=== PATIENT | male | born 1965 | race Caucasian/White ===

== ENCOUNTER 2022-05-08 14:13 | Outpatient (CLI) | payer OTHER, SELFPAY ==
[2022-05-08 18:56] LABS: Basophils Absolute Auto 0.2 K/mm3 (0.0-0.1); Basophils Percent Auto 1.6 % (0.2-1.2); Eosinophils Absolute Auto 0.5 K/mm3 (0-0.3); Eosinophils Percent Auto 4.9 % (0-4.4); Hematocrit 39.7 % (42.0-52.0); Hemoglobin 12.8 g/dL (14.0-18.0); Immature Granulocyte Absolute 0.06 K/mm3 (0.00-0.031); Immature Granulocyte Percent A 0.6 % (0-0.5); Lymphocytes Absolute Auto 2.75 K/mm3 (0.9-3.2); Lymphocytes Percent Auto 25.8 % (18.3-44.2); Mean Corpuscular HGB Conc 32.2 g/dl (32-36); Mean Corpuscular Hemoglobin 28.7 pg (26-34); Mean Platelet Volume 10.2 fl (7.4-10.4); Monocytes Absolute Auto 0.6 K/mm3 (0.1-0.6); Monocytes Percent Auto 5.3 % (2.6-8.5); Neutrophils Absolute Auto 6.6 K/mm3 (1.3-6.7); Neutrophils Percent Auto 61.8 % (45.5-73.1); Platelet Count Result 300 k/mm3 (150-375); Red Blood Count 4.46 M/mm3 (4.6-6.20); Red Cell Distribution Width 14.3 % (11.5-14.5); White Blood Count 10.7 K/mm3 (4.5-10.0)
[2022-05-08 19:31] LABS: Alanine Aminotransferase 91 U/L (6-50); Albumin Level 4.9 g/dL (3.5-5.1); Alkaline Phosphatase 67 U/L (38-126); Anion Gap 17 mmol/L (8-16); Aspartate Amino Transferase 132 U/L (17-59); Bilirubin,Total 0.8 mg/dL (0.2-1.3); Blood Urea Nitrogen 50 mg/dL (9-20); Calcium 9.3 mg/dL (8.4-10.2); Carbon Dioxide 22 mmol/L (22-30); Chloride 105 mmol/L (98-107); Estimated Glomerular Filt Rate 22; Glucose 117 mg/dL (65-110); Magnesium 1.8 mg/dL (1.6-2.3); Potassium 4.6 mmol/L (3.4-5.0); Sodium 144 mmol/L (137-145)
[2022-05-08 19:43] LABS: Appearance Urine Clear (Clear); Bilirubin Urine Negative (Negative); Blood Urine 1+ (Negative); Color Urine Yellow (Yellow); Glucose Urine UA Negative (Negative); Ketones Urine Negative (Negative); Leukocyte Esterase Ur Negative LEU/UL (NEGATIVE); Nitrate Urine Negative (Negative); Protein Urine 2+ mg/dL (Negative); Specific Grav Ur 1.025 (1.001-1.035); Urobilinogen Urine 0.2 mg/dL (<2.0); pH Urine 5.5 (5.0-9.0)
[2022-05-08 19:48] LABS: Hepatitis B Surface Antigen Negative (Negative)
[2022-05-08 19:56] LABS: Mucus Urine Rare /lpf; RBC Urine 0-2 /hpf (0-2); Squamous Epithelial Cell Urine Rare /hpf (Few); WBC Urine 0-3 /hpf (0-3)
[2022-05-08 19:57] LABS: Add Urine Microscopic? YES
[2022-05-08 20:01] LABS: Erythrocyte Sedimentation Rate 28 mm/hr (0-20)
[2022-05-08 20:05] LABS: Hepatitis C Virus Antibody Negative (Negative)
[2022-05-10 23:42] LABS: Albumin 4.6 g/dL (3.8-4.8); Alpha 1 Globulin 0.3 g/dL (0.2-0.3); Alpha 2 Globulin 0.8 g/dL (0.5-0.9); Beta 1 Globulin 0.5 g/dL (0.4-0.6); Gamma Globulin 1.2 g/dL (0.8-1.7); Protein, Total 7.8 g/dL (6.1-8.1)
[2022-05-15 08:55] LABS: Total Protein/Creatinine Ratio 964 mg/g creat (25-148)
== END 2022-05-08 14:14 | disposition home or self-care (01) ==
PROVIDERS: PCP Internal Medicine; Visit Provider Internal Medicine
DX: N18.9 Chronic kidney disease, unspecified (principal); N17.9 Acute kidney failure, unspecified
CPT/HCPCS: 36415; 80053; 81001; 82570; 83735; 84100; 84155; 84156; 84165; 84166; 85025; 85652; 86038; 86039; 86803; 87340

== ENCOUNTER 2022-05-16 09:07 | Outpatient (CLI) | payer OTHER, SELFPAY ==
--- NOTE | ~2022-05-16 | US_ITS ---
EXAMINATION: US abdomen limited DATE: 05/16/2022 09:55 INDICATION: Abnormal levels of other serum enzymes. TECHNIQUE: Multiple grayscale and Doppler ultrasound images of the abdomen were obtained. COMPARISON: None FINDINGS: The visualized portions of the head and body of the pancreas are normal. The liver is sury l without focal lesion. There is normal flow in main portal vein. The gallbladder is normal in size. No gallstones or gallbladder wall thickening. There is no sonographic Pool sign. The common duct is normal and measures 3 mm. IMPRESSION: 1. Normal right upper quadrant ultrasound. Reviewed, dictated and finalized at location A. DIE MAKER
--- NOTE | ~2022-05-16 | US_ITS ---
EXAMINATION: US retroperitoneal duplex ltd, US renal BI DATE: 05/16/2022 09:56 INDICATION: hypertension and acute kidney failure TECHNIQUE: 1. Multiple grayscale and color Doppler images of the kidneys were obtained. 2. Multiple grayscale and pulsed Doppler images of the aorta and renal arteries were obtained. COMPARISON: None. FINDINGS: Kidneys: The right kidney measures 12.1 x 5.4 x 7.4 cm. The left kidney measures 12.2 x 5.8 x 6.9 cm. The kidn eys demonstrate normal echogenicity. There is no hydronephrosis in either kidney. No stones identifi ed. Mild diffuse bladder wall thickening to at least in part to incomplete distention but which may a lso be related to chronic outlet obstruction from the enlarged prostate which measures 4.1 x 4.0 x 3. 2 cm. Renal arteries/vascular: The aorta peak systolic velocity is 83 cm/s. The right renal artery peak systolic velocity is 103 cm/ s in the proximal segment, 67 cm/s in the mid segment, and 43 cm/s in the distal segment. The left re nal artery peak systolic velocity is 74 cm/s in the proximal segment, 63 cm/s in the mid segment, and 64 cm/s in the distal segment. IMPRESSION: 1. Normal kidneys with no hydronephrosis. 2. No Doppler evidence of renal artery stenosis. 3. Mild diffuse bladder wall thickening to at least in part to incomplete distention but could also b e related to chronic outlet obstruction from the mildly enlarged prostate. Reviewed, dictated and finalized at location B. GAGE LOAN COMPUTATION CLERK IMPRESSION: 1. Normal kidneys with no hydronephrosis. 2. No Doppler evidence of renal artery stenosis. 3. Mild diffuse bladder wall thickening to at least in part to incomplete diste ntion but could also be related to chronic outlet obstruction from the mildly e nlarged prostate.
== END 2022-05-16 09:08 | disposition home or self-care (01) ==
LOC: ANHIMG 09:10
PROVIDERS: PCP Internal Medicine; Visit Provider Internal Medicine
DX: N17.9 Acute kidney failure, unspecified (principal); N18.9 Chronic kidney disease, unspecified; R74.8 Abnormal levels of other serum enzymes
CPT/HCPCS: 76705; 76775; 93976

== ENCOUNTER 2022-08-04 09:32 | Outpatient (CLI) | payer OTHER, SELFPAY ==
[2022-08-04 19:44] LABS: Albumin Level 4.2 g/dL (3.5-5.1); Anion Gap 4 mmol/L (8-16); Blood Urea Nitrogen 45 mg/dL (9-20); Calcium 8.7 mg/dL (8.4-10.2); Carbon Dioxide 29 mmol/L (22-30); Chloride 98 mmol/L (98-107); Estimated Glomerular Filt Rate 35; Glucose 291 mg/dL (65-110); Phosphorus 3.8 mg/dL (2.5-4.5); Potassium 4.7 mmol/L (3.4-5.0); Sodium 131 mmol/L (137-145)
[2022-08-04 20:04] LABS: Complement C3 98 mg/dL (88-165); Rheumatoid Factor < 12.0 IU/ML (<12)
[2022-08-04 20:07] LABS: Creatinine Urine 74.8 mg/dL; Total Protein Urine Random 197 mg/dL; Ur Ttl Prot Creatinine Ratio 2.63 mg/mg (0-0.20)
[2022-08-04 20:11] LABS: Sodium Urine Random 73 meq/L
[2022-08-04 20:26] LABS: Eosinophil Urine None Seen % (None Seen); Urine Eos QC 2nd Tech Confirmed
[2022-08-07 11:30] LABS: ANA Cascade Screen Negative (Negative)
[2022-08-07 21:47] LABS: Anti Glomerular Basement Memb <1.0 AI (<1.0)
== END 2022-08-04 09:33 | disposition home or self-care (01) ==
LOC: ANHGOSHLAB 09:34
PROVIDERS: PCP Internal Medicine; Visit Provider Internal Medicine Nephrology
DX: N18.4 Chronic kidney disease, stage 4 (severe) (principal); E11.22 Type 2 diabetes mellitus with diabetic chronic kidney disease; R80.8 Other proteinuria
CPT/HCPCS: 36415; 80069; 82570; 83520; 84156; 84300; 85999; 86038; 86160; 86225; 86430

== ENCOUNTER 2022-12-02 09:59 | Outpatient (CLI) | payer OTHER, SELFPAY ==
[2022-12-02 10:32] LABS: Creatinine Urine 66.1 mg/dL
[2022-12-02 10:38] LABS: Total Protein Urine Random 349 mg/dL; Ur Ttl Prot Creatinine Ratio 5.28 mg/mg (0-0.20)
[2022-12-02 11:04] LABS: Albumin Level 4.3 g/dL (3.5-5.1); Anion Gap 11 mmol/L (8-16); Blood Urea Nitrogen 44 mg/dL (9-20); Carbon Dioxide 25 mmol/L (22-30); Chloride 97 mmol/L (98-107); Estimated Glomerular Filt Rate 35; Glucose 467 mg/dL (65-110); Potassium 4.5 mmol/L (3.4-5.0); Sodium 133 mmol/L (137-145)
[2022-12-02 12:18] LABS: Parathyroid Intact 118.9 pg/mL (7.5-53.5)
[2022-12-02 12:21] LABS: Vitamin D 25 Hydroxy 22.6 ng/mL
== END 2022-12-02 10:00 | disposition home or self-care (01) ==
PROVIDERS: PCP Internal Medicine; Visit Provider Internal Medicine Nephrology
DX: E03.9 Hypothyroidism, unspecified (principal); E11.22 Type 2 diabetes mellitus with diabetic chronic kidney disease; E55.9 Vitamin D deficiency, unspecified; N18.32 Chronic kidney disease, stage 3b; N25.81 Secondary hyperparathyroidism of renal origin
CPT/HCPCS: 36415; 80069; 82306; 82570; 83970; 84156; 84443

== ENCOUNTER 2023-01-01 09:48 | Outpatient (CLI) | payer OTHER, SELFPAY ==
[2023-01-01 19:30] LABS: Basophils Absolute Auto 0.1 K/mm3 (0.0-0.1); Basophils Percent Auto 1.5 % (0.2-1.2); Eosinophils Absolute Auto 0.3 K/mm3 (0-0.3); Eosinophils Percent Auto 3.3 % (0-4.4); Hematocrit 37.4 % (42.0-52.0); Hemoglobin 12.2 g/dL (14.0-18.0); Immature Granulocyte Absolute 0.04 K/mm3 (0.00-0.031); Immature Granulocyte Percent A 0.5 % (0-0.5); Lymphocytes Absolute Auto 1.81 K/mm3 (0.9-3.2); Lymphocytes Percent Auto 22.8 % (18.3-44.2); Mean Corpuscular HGB Conc 32.6 g/dl (32-36); Mean Corpuscular Hemoglobin 27.7 pg (26-34); Mean Platelet Volume 11.1 fl (7.4-10.4); Monocytes Absolute Auto 0.5 K/mm3 (0.1-0.6); Monocytes Percent Auto 6.1 % (2.6-8.5); Neutrophils Absolute Auto 5.2 K/mm3 (1.3-6.7); Neutrophils Percent Auto 65.8 % (45.5-73.1); Platelet Count Result 274 k/mm3 (150-375); Red Cell Distribution Width 12.7 % (11.5-14.5); White Blood Count 7.9 K/mm3 (4.5-10.0)
[2023-01-01 19:49] LABS: Alanine Aminotransferase 27 U/L (6-50); Albumin Level 3.9 g/dL (3.5-5.1); Alkaline Phosphatase 158 U/L (38-126); Aspartate Amino Transferase 28 U/L (17-59); Bilirubin,Total 0.6 mg/dL (0.2-1.3)
[2023-01-01 21:12] LABS: Hemoglobin A1C > 14.0 % (<5.7)
[2023-01-05 17:58] LABS: Testosterone Free 58.8 pg/mL (35.0-155.0); Testosterone Total 249 ng/dL (250-1100)
== END 2023-01-01 09:49 | disposition home or self-care (01) ==
LOC: ANHGOSHLAB 09:50
PROVIDERS: PCP Internal Medicine; Visit Provider Internal Medicine
DX: E11.22 Type 2 diabetes mellitus with diabetic chronic kidney disease (principal); N18.32 Chronic kidney disease, stage 3b; E29.1 Testicular hypofunction; D64.9 Anemia, unspecified
CPT/HCPCS: 36415; 80076; 83036; 84402; 84403; 85025

== ENCOUNTER 2023-03-03 10:00 | Outpatient (CLI) | payer OTHER, SELFPAY ==
[2023-03-03 10:45] LABS: Hematocrit 37.8 % (42.0-52.0); Mean Corpuscular HGB Conc 31.7 g/dl (32-36); Mean Corpuscular Hemoglobin 27.6 pg (26-34); Mean Corpuscular Volume 86.9 fl (80-100); Mean Platelet Volume 10.1 fl (7.4-10.4); Platelet Count Result 285 k/mm3 (150-375); Red Blood Count 4.35 M/mm3 (4.6-6.20); Red Cell Distribution Width 13.3 % (11.5-14.5); White Blood Count 8.9 K/mm3 (4.5-10.0)
[2023-03-03 10:57] LABS: Alanine Aminotransferase 24 U/L (6-50); Albumin Level 4.1 g/dL (3.5-5.1); Alkaline Phosphatase 77 U/L (38-126); Anion Gap 11 mmol/L (8-16); Aspartate Amino Transferase 33 U/L (17-59); Bilirubin,Total 0.5 mg/dL (0.2-1.3); Blood Urea Nitrogen 43 mg/dL (9-20); Calcium 9.2 mg/dL (8.4-10.2); Carbon Dioxide 23 mmol/L (22-30); Chloride 108 mmol/L (98-107); Estimated Glomerular Filt Rate 39; Glucose 128 mg/dL (65-110); Potassium 4.5 mmol/L (3.4-5.0); Sodium 142 mmol/L (137-145)
[2023-03-03 11:28] LABS: Thyroid Stimulating Hormone 0.094 uIU/mL (0.465-4.680)
[2023-03-03 11:51] LABS: Hemoglobin A1C 8.3 % (<5.7)
== END 2023-03-03 10:01 | disposition home or self-care (01) ==
LOC: ANHLAB 10:02
PROVIDERS: PCP Internal Medicine; Visit Provider Internal Medicine
DX: R74.8 Abnormal levels of other serum enzymes (principal); N18.32 Chronic kidney disease, stage 3b; D64.9 Anemia, unspecified; E11.22 Type 2 diabetes mellitus with diabetic chronic kidney disease
CPT/HCPCS: 36415; 80053; 83036; 84443; 85027

== ENCOUNTER 2023-03-31 08:10 | Outpatient (CLI) | payer OTHER, SELFPAY ==
[2023-03-31 08:32] LABS: Creatinine Urine 64.9 mg/dL; Total Protein Urine Random 110 mg/dL; Ur Ttl Prot Creatinine Ratio 1.69 mg/mg (0-0.20)
[2023-03-31 08:34] LABS: Albumin Level 4.2 g/dL (3.5-5.1); Anion Gap 9 mmol/L (8-16); Blood Urea Nitrogen 38 mg/dL (9-20); Calcium 8.9 mg/dL (8.4-10.2); Carbon Dioxide 20 mmol/L (22-30); Chloride 111 mmol/L (98-107); Estimated Glomerular Filt Rate 37; Glucose 112 mg/dL (65-110); Phosphorus 4.4 mg/dL (2.5-4.5); Sodium 140 mmol/L (137-145)
[2023-03-31 09:14] LABS: Vitamin D 25 Hydroxy 66.9 ng/mL
== END 2023-03-31 08:11 | disposition home or self-care (01) ==
LOC: ANHLAB 08:11
PROVIDERS: PCP Internal Medicine; Visit Provider Internal Medicine Nephrology
DX: E11.22 Type 2 diabetes mellitus with diabetic chronic kidney disease (principal); N18.32 Chronic kidney disease, stage 3b; E55.9 Vitamin D deficiency, unspecified
CPT/HCPCS: 36415; 80069; 82306; 82570; 84156

== ENCOUNTER 2023-07-28 09:26 | Outpatient (CLI) | payer OTHER, SELFPAY ==
[2023-07-28 10:00] LABS: Hematocrit 37.6 % (42.0-52.0); Hemoglobin 12.2 g/dL (14.0-18.0); Mean Corpuscular HGB Conc 32.4 g/dl (32-36); Mean Corpuscular Hemoglobin 28.1 pg (26-34); Mean Corpuscular Volume 86.6 fl (80-100); Mean Platelet Volume 10.3 fl (7.4-10.4); Platelet Count Result 254 k/mm3 (150-375); Red Blood Count 4.34 M/mm3 (4.6-6.20); White Blood Count 11.3 K/mm3 (4.5-10.0)
[2023-07-28 10:31] LABS: Iron 48 ug/dL (49-181)
[2023-07-28 10:41] LABS: Percent Iron Saturation 16 % (20-50)
[2023-07-28 11:17] LABS: Anion Gap 10 mmol/L (8-16); Blood Urea Nitrogen 50 mg/dL (9-20); Calcium 9.7 mg/dL (8.4-10.2); Carbon Dioxide 26 mmol/L (22-30); Chloride 104 mmol/L (98-107); Cholesterol 106 mg/dL (0-200); Estimated Glomerular Filt Rate 31; Glucose 125 mg/dL (65-110); HDL Direct 35 mg/dL; Potassium 4.4 mmol/L (3.4-5.0); Sodium 140 mmol/L (137-145); Triglycerides 230 mg/dL (<150)
[2023-07-28 11:22] LABS: Albumin Level 4.6 g/dL (3.5-5.1); Anion Gap 10 mmol/L (8-16); Blood Urea Nitrogen 50 mg/dL (9-20); Calcium 9.7 mg/dL (8.4-10.2); Carbon Dioxide 25 mmol/L (22-30); Chloride 106 mmol/L (98-107); Estimated Glomerular Filt Rate 33; Glucose 125 mg/dL (65-110); Phosphorus 4.1 mg/dL (2.5-4.5); Potassium 4.5 mmol/L (3.4-5.0); Sodium 141 mmol/L (137-145)
[2023-07-28 11:28] LABS: LDL Cholesterol Direct 40 mg/dL
[2023-07-28 11:29] LABS: Creatinine Urine 71.3 mg/dL; Total Protein Urine Random 152 mg/dL; Ur Ttl Prot Creatinine Ratio 2.13 mg/mg (0-0.20)
[2023-07-28 11:29] LABS: Parathyroid Intact 86.9 pg/mL (7.5-53.5)
[2023-07-28 11:36] LABS: Vitamin D 25 Hydroxy 68.6 ng/mL
[2023-07-28 11:47] LABS: Thyroid Stimulating Hormone 0.409 uIU/mL (0.465-4.680)
[2023-07-31 20:42] LABS: Apolipoprotein B 51 mg/dL (<90)
[2023-08-02 07:53] LABS: Testosterone Free 46.9 pg/mL (35.0-155.0); Testosterone Total 190 ng/dL (250-1100)
== END 2023-07-28 09:27 | disposition home or self-care (01) ==
LOC: ANHLAB 09:29
PROVIDERS: PCP Internal Medicine; Referring Provider Internal Medicine; Visit Provider Internal Medicine Nephrology
DX: D64.9 Anemia, unspecified (principal); E03.9 Hypothyroidism, unspecified; E11.22 Type 2 diabetes mellitus with diabetic chronic kidney disease; E29.1 Testicular hypofunction; N18.32 Chronic kidney disease, stage 3b; E55.9 Vitamin D deficiency, unspecified; N25.81 Secondary hyperparathyroidism of renal origin
CPT/HCPCS: 36415; 80048; 80061; 80069; 82172; 82306; 82570; 82728; 83036; 83540; 83550; 83970; 84156; 84402; 84403; 84443; 85027

== ENCOUNTER 2023-10-22 16:21 | Outpatient (CLI) | payer OTHER, SELFPAY ==
[2023-10-22 17:08] LABS: Alanine Aminotransferase 24 U/L (6-50); Albumin Level 4.4 g/dL (3.5-5.1); Alkaline Phosphatase 73 U/L (38-126); Anion Gap 12 mmol/L (4-12); Aspartate Amino Transferase 36 U/L (17-59); Bilirubin,Total 0.7 mg/dL (0.2-1.3); Blood Urea Nitrogen 39 mg/dL (9-20); Calcium 9.3 mg/dL (8.4-10.2); Carbon Dioxide 22 mmol/L (22-30); Chloride 106 mmol/L (98-107); Estimated Glomerular Filt Rate 31; Glucose 138 mg/dL (65-110); Potassium 3.9 mmol/L (3.4-5.0); Sodium 140 mmol/L (137-145)
[2023-10-22 17:09] LABS: Basophils Absolute Auto 0.1 K/mm3 (0.0-0.1); Eosinophils Absolute Auto 0.5 K/mm3 (0-0.3); Eosinophils Percent Auto 4.6 % (0-4.4); Hematocrit 36.3 % (42.0-52.0); Hemoglobin 11.4 g/dL (14.0-18.0); Immature Granulocyte Absolute 0.04 K/mm3 (0.00-0.031); Immature Granulocyte Percent A 0.4 % (0-0.5); Lymphocytes Absolute Auto 2.56 K/mm3 (0.9-3.2); Lymphocytes Percent Auto 22.4 % (18.3-44.2); Mean Corpuscular HGB Conc 31.4 g/dl (32-36); Mean Corpuscular Hemoglobin 27.4 pg (26-34); Mean Corpuscular Volume 87.3 fl (80-100); Mean Platelet Volume 10.1 fl (7.4-10.4); Monocytes Absolute Auto 0.8 K/mm3 (0.1-0.6); Monocytes Percent Auto 7.4 % (2.6-8.5); Neutrophils Absolute Auto 7.3 K/mm3 (1.3-6.7); Neutrophils Percent Auto 64.2 % (45.5-73.1); Platelet Count Result 280 k/mm3 (150-375); Red Blood Count 4.16 M/mm3 (4.6-6.20); Red Cell Distribution Width 12.9 % (11.5-14.5); White Blood Count 11.4 K/mm3 (4.5-10.0)
[2023-10-22 17:36] LABS: Prostate Specific Antigen 0.9 ng/mL (< OR = 4.0)
[2023-10-27 14:52] LABS: Testosterone Free 150.4 pg/mL (35.0-155.0); Testosterone Total 544 ng/dL (250-1100)
== END 2023-10-22 16:22 | disposition home or self-care (01) ==
LOC: ANHLAB 16:22
PROVIDERS: PCP Internal Medicine; Visit Provider Internal Medicine
DX: E11.22 Type 2 diabetes mellitus with diabetic chronic kidney disease (principal); E29.1 Testicular hypofunction; Z79.890 Hormone replacement therapy
CPT/HCPCS: 36415; 80053; 83036; 84153; 84402; 84403; 85025; G0103

== ENCOUNTER 2023-11-19 16:04 | Outpatient (CLI) | payer OTHER, SELFPAY ==
[2023-11-19 17:39] LABS: Anion Gap 10 mmol/L (4-12); Blood Urea Nitrogen 37 mg/dL (9-20); Calcium 9.5 mg/dL (8.4-10.2); Carbon Dioxide 21 mmol/L (22-30); Chloride 109 mmol/L (98-107); Estimated Glomerular Filt Rate 28; Glucose 98 mg/dL (65-110); Potassium 3.8 mmol/L (3.4-5.0); Sodium 140 mmol/L (137-145)
== END 2023-11-19 16:05 | disposition home or self-care (01) ==
LOC: ANHLAB 16:05
PROVIDERS: PCP Internal Medicine; Visit Provider Internal Medicine
DX: N18.32 Chronic kidney disease, stage 3b (principal)
CPT/HCPCS: 36415; 80048

== ENCOUNTER 2023-12-01 11:11 | Outpatient (CLI) | payer OTHER, SELFPAY ==
[2023-12-01 11:33] LABS: Creatinine Urine 101.7 mg/dL; Total Protein Urine Random 191 mg/dL; Ur Ttl Prot Creatinine Ratio 1.88 mg/mg (0-0.20)
[2023-12-01 12:03] LABS: Albumin Level 4.8 g/dL (3.5-5.1); Anion Gap 9 mmol/L (4-12); Blood Urea Nitrogen 44 mg/dL (9-20); Calcium 9.2 mg/dL (8.4-10.2); Carbon Dioxide 20 mmol/L (22-30); Chloride 111 mmol/L (98-107); Estimated Glomerular Filt Rate 28; Glucose 144 mg/dL (65-110); Phosphorus 3.8 mg/dL (2.5-4.5); Potassium 4.4 mmol/L (3.4-5.0); Sodium 140 mmol/L (137-145)
== END 2023-12-01 11:12 | disposition home or self-care (01) ==
LOC: ANHLAB 11:12
PROVIDERS: PCP Internal Medicine; Visit Provider Internal Medicine Nephrology
DX: E11.22 Type 2 diabetes mellitus with diabetic chronic kidney disease (principal); N18.32 Chronic kidney disease, stage 3b
CPT/HCPCS: 36415; 80069; 82570; 84156

== ENCOUNTER 2024-03-17 16:20 | Outpatient (CLI) | payer OTHER, SELFPAY ==
[2024-03-17 16:51] LABS: Basophils Absolute Auto 0.1 K/mm3 (0.0-0.1); Eosinophils Absolute Auto 0.5 K/mm3 (0-0.3); Eosinophils Percent Auto 4.6 % (0-4.4); Hematocrit 30.7 % (42.0-52.0); Immature Granulocyte Absolute 0.03 K/mm3 (0.00-0.031); Immature Granulocyte Percent A 0.3 % (0-0.5); Lymphocytes Absolute Auto 2.11 K/mm3 (0.9-3.2); Lymphocytes Percent Auto 20.7 % (18.3-44.2); Mean Corpuscular HGB Conc 32.6 g/dl (32-36); Mean Corpuscular Hemoglobin 28.8 pg (26-34); Mean Corpuscular Volume 88.5 fl (80-100); Monocytes Absolute Auto 0.8 K/mm3 (0.1-0.6); Monocytes Percent Auto 7.6 % (2.6-8.5); Neutrophils Absolute Auto 6.7 K/mm3 (1.3-6.7); Neutrophils Percent Auto 65.8 % (45.5-73.1); Platelet Count Result 227 k/mm3 (150-375); Red Blood Count 3.47 M/mm3 (4.6-6.20); Red Cell Distribution Width 13.8 % (11.5-14.5); White Blood Count 10.2 K/mm3 (4.5-10.0)
[2024-03-17 17:28] LABS: Alanine Aminotransferase 26 U/L (6-50); Albumin Level 4.1 g/dL (3.5-5.1); Alkaline Phosphatase 63 U/L (38-126); Anion Gap 14 mmol/L (4-12); Aspartate Amino Transferase 36 U/L (17-59); Bilirubin,Total 0.6 mg/dL (0.2-1.3); Blood Urea Nitrogen 42 mg/dL (9-20); Calcium 9.3 mg/dL (8.4-10.2); Carbon Dioxide 21 mmol/L (22-30); Chloride 104 mmol/L (98-107); Estimated Glomerular Filt Rate 23; Glucose 111 mg/dL (65-110); Potassium 4.3 mmol/L (3.4-5.0); Sodium 139 mmol/L (137-145)
[2024-03-17 17:49] LABS: Thyroid Stimulating Hormone 0.106 uIU/mL (0.465-4.680)
[2024-03-17 18:17] LABS: Hemoglobin A1C 5.8 % (<5.7)
== END 2024-03-17 16:21 | disposition home or self-care (01) ==
LOC: ANHLAB 16:21
PROVIDERS: PCP Internal Medicine; Visit Provider Internal Medicine
DX: E11.22 Type 2 diabetes mellitus with diabetic chronic kidney disease (principal); N18.4 Chronic kidney disease, stage 4 (severe); D64.9 Anemia, unspecified; E03.9 Hypothyroidism, unspecified
CPT/HCPCS: 36415; 80053; 83036; 84443; 85025

== ENCOUNTER 2024-04-10 15:18 | Outpatient (CLI) | payer OTHER, SELFPAY ==
[2024-04-10 16:17] LABS: Basophils Absolute Auto 0.1 K/mm3 (0.0-0.1); Basophils Percent Auto 1.1 % (0.2-1.2); Eosinophils Absolute Auto 0.5 K/mm3 (0-0.3); Hematocrit 29.5 % (42.0-52.0); Hemoglobin 9.6 g/dL (14.0-18.0); Immature Granulocyte Absolute 0.03 K/mm3 (0.00-0.031); Immature Granulocyte Percent A 0.3 % (0-0.5); Lymphocytes Absolute Auto 2.41 K/mm3 (0.9-3.2); Lymphocytes Percent Auto 25.8 % (18.3-44.2); Mean Corpuscular HGB Conc 32.5 g/dl (32-36); Mean Corpuscular Hemoglobin 29.5 pg (26-34); Mean Corpuscular Volume 90.8 fl (80-100); Mean Platelet Volume 10.2 fl (7.4-10.4); Monocytes Absolute Auto 0.7 K/mm3 (0.1-0.6); Monocytes Percent Auto 7.3 % (2.6-8.5); Neutrophils Absolute Auto 5.6 K/mm3 (1.3-6.7); Neutrophils Percent Auto 60.5 % (45.5-73.1); Platelet Count Result 258 k/mm3 (150-375); Red Blood Count 3.25 M/mm3 (4.6-6.20); White Blood Count 9.3 K/mm3 (4.5-10.0)
[2024-04-10 17:47] LABS: Albumin Level 4.2 g/dL (3.5-5.1); Anion Gap 11 mmol/L (4-12); Blood Urea Nitrogen 60 mg/dL (9-20); Calcium 9.1 mg/dL (8.4-10.2); Carbon Dioxide 24 mmol/L (22-30); Chloride 103 mmol/L (98-107); Estimated Glomerular Filt Rate 24; Glucose 88 mg/dL (65-110); Phosphorus 5.1 mg/dL (2.5-4.5); Potassium 4.1 mmol/L (3.4-5.0); Sodium 138 mmol/L (137-145)
[2024-04-10 17:58] LABS: Creatinine Urine 112.8 mg/dL; Total Protein Urine Random 69 mg/dL; Ur Ttl Prot Creatinine Ratio 0.61 mg/mg (0-0.20)
[2024-04-10 17:58] LABS: Parathyroid Intact 76.5 pg/mL (14.5-75.2)
[2024-04-10 18:09] LABS: Prostate Specific Antigen 0.9 ng/mL (< OR = 4.0)
[2024-04-10 19:33] LABS: Vitamin D 25 Hydroxy 68.6 ng/mL
[2024-04-16 13:23] LABS: Testosterone Free 111.2 pg/mL (35.0-155.0); Testosterone Total 417 ng/dL (250-1100)
== END 2024-04-10 15:19 | disposition home or self-care (01) ==
LOC: ANHLAB 15:21
PROVIDERS: PCP Internal Medicine; Visit Provider Internal Medicine Nephrology
DX: E11.22 Type 2 diabetes mellitus with diabetic chronic kidney disease (principal); E55.9 Vitamin D deficiency, unspecified; N18.4 Chronic kidney disease, stage 4 (severe); N25.81 Secondary hyperparathyroidism of renal origin; Z12.5 Encounter for screening for malignant neoplasm of prostate; Z79.890 Hormone replacement therapy
CPT/HCPCS: 36415; 80069; 82306; 82570; 83970; 84153; 84156; 84402; 84403; 85025; G0103

== ENCOUNTER 2024-06-10 13:59 | Outpatient (CLI) | payer OTHER, SELFPAY ==
[2024-06-10 14:25] LABS: Basophils Absolute Auto 0.1 K/mm3 (0.0-0.1); Basophils Percent Auto 1.5 % (0.2-1.2); Eosinophils Absolute Auto 0.5 K/mm3 (0-0.3); Eosinophils Percent Auto 6.1 % (0-4.4); Hematocrit 35.3 % (42.0-52.0); Hemoglobin 11.3 g/dL (14.0-18.0); Immature Granulocyte Absolute 0.02 K/mm3 (0.00-0.031); Immature Granulocyte Percent A 0.2 % (0-0.5); Lymphocytes Absolute Auto 2.14 K/mm3 (0.9-3.2); Lymphocytes Percent Auto 26.6 % (18.3-44.2); Mean Corpuscular Volume 90.7 fl (80-100); Mean Platelet Volume 9.5 fl (7.4-10.4); Monocytes Absolute Auto 0.6 K/mm3 (0.1-0.6); Monocytes Percent Auto 7.6 % (2.6-8.5); Neutrophils Absolute Auto 4.7 K/mm3 (1.3-6.7); Platelet Count Result 238 k/mm3 (150-375); Red Blood Count 3.89 M/mm3 (4.6-6.20); Red Cell Distribution Width 12.1 % (11.5-14.5)
[2024-06-10 16:35] LABS: Iron 47 ug/dL (49-181)
[2024-06-10 16:47] LABS: Percent Iron Saturation 15 % (20-50)
[2024-06-10 17:07] LABS: Alanine Aminotransferase 37 U/L (6-50); Albumin Level 4.1 g/dL (3.5-5.1); Alkaline Phosphatase 64 U/L (38-126); Anion Gap 4 mmol/L (4-12); Aspartate Amino Transferase 57 U/L (17-59); Bilirubin,Total 0.5 mg/dL (0.2-1.3); Blood Urea Nitrogen 47 mg/dL (9-20); Calcium 9.2 mg/dL (8.4-10.2); Carbon Dioxide 28 mmol/L (22-30); Chloride 109 mmol/L (98-107); Estimated Glomerular Filt Rate 28; Glucose 94 mg/dL (65-110); Potassium 4.5 mmol/L (3.4-5.0); Sodium 141 mmol/L (137-145)
[2024-06-10 18:33] LABS: Folic Acid 11.6 ng/mL (2.76->20)
[2024-06-11 07:48] LABS: Protein, Total 6.7 g/dL (6.1-8.1)
[2024-06-13 14:38] LABS: Erythropoietin (EPO) 10.8 mIU/mL (2.6-18.5)
[2024-06-14 08:53] LABS: Methylmalonic Acid 486 nmol/L (55-335)
[2024-06-17 12:34] LABS: Soluble Transferrin Receptor 1.15 mg/L (0.76-1.76)
[2024-06-18 20:44] LABS: Albumin 3.9 g/dL (3.8-4.8); Alpha 1 Globulin 0.3 g/dL (0.2-0.3); Alpha 2 Globulin 0.7 g/dL (0.5-0.9); Beta 1 Globulin 0.5 g/dL (0.4-0.6)
== END 2024-06-10 14:00 | disposition home or self-care (01) ==
LOC: ANHLAB 14:02
PROVIDERS: PCP Internal Medicine; Visit Provider Internal Medicine Hematology & Oncology
DX: D64.9 Anemia, unspecified (principal)
CPT/HCPCS: 36415; 80053; 82607; 82668; 82728; 82746; 83540; 83550; 83921; 84155; 84165; 84238; 85025

== ENCOUNTER 2024-08-11 15:25 | Outpatient (CLI) | payer OTHER, SELFPAY ==
--- OUTSIDE RECORDS SUMMARY | 2024-08-11 15:34 | XMS_ITS | Clinical Summary ---
Author Organization [facility] Address [address] [place] [address] Care Team Providers Care Exhibits Manager Name Role Phone Narendra Arellano DO Primary Care Provider Allergies No known active allergies Medications Blood Glucose Monitoring Suppl (ONE TOUCH ULTRA 2) w/Device Kit 02/09/2016 Act abbie Glucose Blood test strip daily. 04/03/2017 Active Active Problems Problem Noted Date Diagnosed Date Morbid obesity ([facility]) 05/07/2019 Other specified hypothyroidism 05/07/2019 Intractable nausea and vomiting 07/08/2017 Assessment & Plan (07/08/2017 2:37 AM COMPUTING CONSULTANT): Acute - S/p 15 episodes of NBNB emesis, possible food poisoning vs viral gastritis vs atypical presentation of NSTEMI with elevated Troponin on admission. Hx and lab findings inconsistent with pancreatitis/SBO Plan: - Received 3L fluid bolus in ED with clinical improvement - Continue NS at 150 ml/hr - NPO w/ sips/meds. ADAT in AM. - Zofran 4 mg IV q6h prn Diabetes mellitus ([facility]) 07/08/2017 Assessment & Plan (07/08/2017 2:39 AM COMPUTING CONSULTANT): Chronic, unknown control - Glucose on presentation 368, received 4 U Novolog in ED Plan: - Ordered HbA1c - Hold home metformin due to elevated lactate - POC glucose AC/HS - Continue Lantus 10 U qHS + MDSSI Hypertension 07/08/2017 Assessment & Plan (07/08/2017 2:40 AM COMPUTING CONSULTANT): Chronic, hypertensive on presentation Plan: - Continue home lisinopril 40 mg daily - Continue to monitor Elevated serum lactate dehydrogenase 07/08/2017 Assessment & Plan (07/08/2017 2:45 AM COMPUTING CONSULTANT): Acute - No convincing signs of infection w/o leukocytosis. No identifiable cutaneous or pulmonary source. No urinary symptoms. EtOH negative. - Possible elevation related to metformin use in setting of dehydration - Trended down 3.4 -> 2.7 with 3L fluid bolus Plan: - Repeat in AM Hypokalemia 07/08/2017 Assessment & Plan (07/08/2017 11:28 AM COMPUTING CONSULTANT): Acute - K 3.1 on admission 2 vomiting Plan: - Received KCl 20 mEq in ED - Repeat BMP Hypomagnesemia 07/08/2017 Assessment & Plan (07/08/2017 2:51 AM COMPUTING CONSULTANT): Acute - Mg 1.6 on admission 2 vomiting Plan: - Received Magnesium sulfate 2g IV in ED - Repeat Magnesium in AM Hyperlipidemia 07/08/2017 Assessment & Plan (07/08/2017 2:53 AM COMPUTING CONSULTANT): Chronic, stable Plan: - Ordered Lipid panel, calculate ASCVD risk History of tobacco abuse 07/08/2017 Diverticulosis 09/28/2016 Tubular adenoma of colon 08/30/2016 Overview (05/01/2019): Overview: f/u 5 yrs DDD (degenerative disc disease), lumbar 04/15/20 14 Resolved Problems Problem Noted Date Diagnosed Date Resolved Date Prostate cancer screening 07/06/2020 Encounter for preventive health examination 11/15/2017 03/12/2020 Class 2 obesity due to exces s calories with body mass index (BMI) of 38.0 to 38.9 in adult 07/08/2017 07/06/2020 Immunizations Name Administration Dates Next Due Influenza Adult (Generic) 04/03/2017 Pneumococcal (Pneumovax 23) 04/15/2014 Tdap (Generic) 04/15/2014 Social History Tobacco Use Types Packs/Day Years Used Date Smoking Tobacco: Former Cigarettes 1 15 1 992 - 2006 Smokeless Tobacco: Never Alcohol Use Standard Drinks/Week Comments Yes 0 (1 standard drink = 0.6 oz pur e alcohol) social PHQ-2 Answer Date Recorded PHQ-2 Score - If the patient scores above 3, please move on to questions 3-9 0 01/06/2022 Sex and Gender Information Value Date Recorded Sex Assigned at Not on file Legal Sex Male 7:45 PM CDT Gender Identity Not on file Sexual Orientation Not on file Last Filed Vital Signs Vital Sign Reading Time Taken Comments Blood Pressure 142/80 01/06/2022 8:15 AM CDT Pulse 62 01/06/2022 8:15 AM CDT Temperature 37.6 C (99.7 F) 10/25/2018 9:12 AM CDT Respiratory Rate 18 10/25/2018 12:50 PM CDT Oxygen Saturation 95% 10/25/2018 1:30 PM CDT Inhaled Oxygen Concentration - - Weight 112.9 kg (249 lb) 01/06/2022 8:15 AM CDT Height 170.2 cm (5' 7 ) 01/06/2022 8:15 AM CDT Body Mass Index 39 01/06/2022 8:15 AM CDT Plan of Treatment Health Maintenance Due Date Last Done Comments Kidney Health Evaluation 1966 Diabetes: Retinopathy Eye Exam 1984 Hepatitis C 1984 Hepatitis B Vaccines (1 of 3 - 19+ 3-dose series) 1985 Pneumococcal Vaccine: Pediatrics (0 to 5 Years) and At-Risk Patients (6 to 64 Years) (2 of 2 - PCV) 04/15/2015 04/15/2014 Zoster Vaccines (1 of 2) 2016 Hemoglobin A1C 07/09/2022 01/06/2022, 10/2020, 05/10/2019, Additional history exists Annual Physical 01/06/2023 01/06/2022, 10/2020, 05/07/2019 Lipid Panel 01/06/2023 01/06/2022, 01/2022, 07/06/2020, Additional history exists COVID-19 Vaccine ( season) 2024 10/15/2020, 09/23/2020 Influenza Adult (#1) 2024 04/03/2017, 04/20/20 16 DTaP, Tdap and Td Vaccines (2 - Td or Tdap) 04/15/2024 04/15/2014 Colorectal Cancer Screening Colonoscopy (10 Years) 07/02/2026 07/02/2016 Meningococcal B Vaccine Aged Out No l onger eligible based on patient's age to complete this topic Meningococcal Vaccine Aged Out No jack dae eligible based on patient's age to complete this topic RSV Immunizations Under 20 Months Aged Out No longer eligible based on patient's age to complete this topic Procedures Procedure Name Priority Date/Time Associated Diagnosis Comments LIPID PANEL Routine 01/06/2022 8:36 AM CDT 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) COLONOSCOPY Routine 07/02/2016 12:00 AM COMPUTING CONSULTANT from Last 3 Months or Most Recently Relevant to Health Maintenance Results * (ABNORMAL) LIPID PANEL (01/06/2022 8:36 AM CDT) CHOLESTEROL 178 0 - 199 MG/DL [facility] TRIGLYCERIDES 336(H) 0.00 - 150.00 MG/DL [facility] Comment: NCEP REFERENCE VALUES FOR TRIGLYCERIDES: NORMAL: <150 MG/DL BORDERLINE HIGH: 150 - 199 MG/DL HIGH: 200 - 499 MG/DL VERY HIGH: >/= 500 MG/DL HDL 34(L) >40 MG/DL [facility] LDL (CALCULATED) 77 0 - 99 MG/DL [facility] Comment: CUTOFF VALUES RECOMMENDED BY THE NATIONAL CHOLESTEROL EDUCATION PROGRAM: DESIRABLE: CHOLESTEROL <200 MG/DL LDL <100 MG/DL BORDERLINE: CHOLESTEROL 200-239 MG/DL LDL 101-159 MG/DL HIGHER RISK: CHOLESTEROL >240 MG/DL LDL >160 MG/DL, HDL <40 MG/DL NON HDL CHOLESTEROL 144 NO REFERENCE RANGE MG/DL [facility] Comment: A REASONABLE GOAL FOR NON-HDL CHOLESTEROL IS ONE THAT IS 30 MG/DL HIGHER THAN THE LDL CHOLESTEROL GOAL. CHOL/HDL RATIO 5.2(H) 0.0 - 5.0 . [facility] Comment:IS PATIENT FASTING?- >YES 01/06/2022 8:36 AM CDT 01/07/2022 4:28 AM CDT [employer] DO LABORATORY Final Resul t [facility] [address] [place] [address], * (ABNORMAL) HEMOGLOBIN, GLYCOSYLATED (01/06/2022 8:33 AM CDT) HGB A1C 6.8(A) 4.2 - 6.5 % [facility] 01/06/2022 8:33 AM CDT [employer] DO LABORATORY Final Resul t Performing Organization Address [facility] Co de Phone Number [facility] [address] [place], [place] [address], * Colonoscopy (07/02/2016 12:00 AM COMPUTING CONSULTANT) 07/02/2016 07/02/2016 Narrative TOUCHWORKS TO EPIC CONVERSION - 07/02/2016 12:00 AM COMPUTING CONSULTANT Documented hx of procedure Procedure Note Mal Mari MD - 09/19/2018 Documented hx of procedure Generic Conversion Md MARI GI PROCEDURE ORDERABLES Final Result Performing Organization Address [facility] Co de Phone Number TOUCHWORKS TO EPIC CONVERSION from Last 3 Months or Most Recently Relevant to Health Maintenance Insurance [employer] Advance Directives * Full Code (Latest Code Status on File) Date Activated Date Inactivated Comments 07/08/2017 2:26 AM 07/08/2017 7:28 PM Care Teams Exhibits Manager Relationship Specialty Start Date End Date Narendra Arellano DO PCP - General FAMILY PRACTICE 10/25/18
--- OUTSIDE RECORDS SUMMARY | 2024-08-11 15:34 | XMS_ITS | Clinical Summary ---
Author Organization [facility] [employer] Address [address] [place] [address] Care Team Providers Care Sports Administrator Name Role Phone Elan Rothman PA-C Primary Care Provider [phone] Source Comments [facility],non-owned Affiliates and Associated Physician Practices is amultiple site organization consisting of ambulatory clinics and hospital sitesin [place], [place], [place] and [place]. This disclosure is being madepursuant to the Care Everywhere program and may not contain all information available regarding this patient. Last updated 18.[facility] Medications * Be aware that medications may not be up to date on this document. Alwaysverify current medications with the patient. Medication Sig Dispensed Refills Start Date End Date Status Acetaminophen-Aspirin Buffered (EXCEDRIN BACK & BODY PO) Take by mouth. 11/01/2014 Active Social History Tobacco Use Types Packs/Day Years Used Date Smoking Tobacco: Never Smokeless Tobacco: Never Alcohol Use Standard Drinks/Week Comments Yes 0 (1 standard drink = 0.6 oz pur e alcohol) Sex and Gender Information Value Date Recorded Sex Assigned at Not on file Gender Identity Not on file Sexual Orientation Not on file Last Filed Vital Signs Vital Sign Reading Time Taken Comments Blood Pressure 163/88 11/01/2014 4:35 PM CDT Pulse 54 11/01/2014 4:35 PM CDT Temperature 36.7 C (98.1 F) 11/01/2014 4:35 PM CDT Respiratory Rate 16 11/01/2014 4:35 PM CDT Oxygen Saturation 98% 11/01/2014 4:35 PM CDT Inhaled Oxygen Concentration - - Weight 117.9 kg (260 lb) 11/01/2014 4:35 PM CDT Height 172.7 cm (5' 7.99 ) 11/01/2014 4:35 PM CD T Body Mass Index 39.54 11/01/2014 4:35 PM CDT Plan of Treatment Health Maintenance Due Date Last Done Comments COLOGUARD (AGES 45-75) - COL ON CA SCREENING 1966 COLON MONITORING 1966 COLONOSCOPY - COLON CA SCREENING 1966 CT COLONOGRAPHY - COLON CA SCREENING 1966 Colorectal Cancer Screening 1966 FIT - COLON CA SCREENING 1966 FLEX SIG - COLON CA SCREENING 1966 LIPID TESTING 1966 HIV SCREENING 1981 HEPATITIS C SCREENING 07/09/1984 DTAP/TDAP/TD VACCINES (1 - Tdap) 1985 HEPATITIS B VACCINE (1 of 3 - 19+ 3-dose series) 1985 PNEUMOCOCCAL VACCINE 50+ (1 of 1 - PCV) 2016 ZOSTER VACCINE (1 of 2) 2016 COVID-19 VACCINE (1 - 2023-2 5 season) 2024 INFLUENZA VACCINE (#1) 2024 DEPRESSION SCREENING 07/02/2024 HIB VACCINE Aged Out No longer eligi ble based on patient's age to complete this topic HPV VACCINE Aged Out No longer eligi ble based on patient's age to complete this topic MENINGOCOCCAL (Group B) VACCINE Aged Out No longer eligible based on patient's age to complete this topic MENINGOCOCCAL VACCINE Aged Out No jack dae eligible based on patient's age to complete this topic PNEUMOCOCCAL VACCINE Aged Out No long er eligible based on patient's age to complete this topic Care Teams Sports Administrator Relationship Specialty Start Date End Date Elan Rothman PA-C [address] [place] [address] PCP - General 11/01/14
--- OUTSIDE RECORDS SUMMARY | 2024-08-11 15:34 | XMS_ITS | Patient Health Summary ---
Author Organization [facility] Address [address] [place] [address] Care Team Providers Care Loader Engineer Name Role Phone Elan Rothman PA-C Primary Care Provider [phone] Note from [facility],non-owned Affiliates and Associated Physician Practices is amultiple site organization consisting of ambulatory clinics and hospital sitesin [place], [place], [place] and [place]. This disclosure is being madepursuant to the Care Everywhere program and may not contain all information available regarding this patient. Last updated 18.[facility] Medications * Be aware that medications may not be up to date on this document. Alwaysverify current medications with the patient. * Acetaminophen-Aspirin Buffered (EXCEDRIN BACK & BODY PO)(Started 11/01/2014) Take by mouth. Social History Tobacco Use Types Packs/Day Years [...] Mass Index 39.54 11/01/2014 4:35 PM CDT Procedures * XR SHOULDER RIGHT 2VW OR MORE(Performed 11/01/2014) Results * XR SHOULDER RIGHT 2VW OR MORE (11/01/2014 5:14 PM CDT) Anatomical Region Laterality Modality Upper Extremity Other Impressions 11/01/2014 5:33 PM CDT No acute osseous abnormality. Degenerative changes including prominent osteophyte at the undersurface of the acromion. Reading Radiologist - Mana Byers Releasing Radiologist - Mana Byers Dictation Date Time - 11/01/2014 17:32 Coordinate Measuring Equipment Operator - NA Narrative 11/01/2014 5:33 PM CDT XR SHOULDER RIGHT 2VW OR MORE, 11/01/2014 4:46 PM, [facility] INDICATION: 959.2: Injury, other and unspecified, shoulder and upper arm ADDITIONAL CLINICAL INFORMATION: Ordering Provider Reason For Exam: Technologist Note: Rt shoulder injury Additional: None COMPARISON: None available at the time of dictation. TECHNIQUE: Three views of the right shoulder are reviewed. FINDINGS: No acute fracture or dislocation is seen. There is a very prominent osteophyte arising from the undersurface of the acromion near the AC joint, likely to cause subacromial impingement. Mild superior subluxation of the humeral head is seen, sometimes associated with rotator cuff pathology. The glenohumeral joint and AC joint spaces are narrowed with marginal osteophytes. Small degenerative cysts are seen in the humeral head. Procedure Note Mana Byers MD - 05/03/2018 XR SHOULDER RIGHT 2VW OR MORE, 11/01/2014 4:46 PM, [facility] INDICATION: 959.2: Injury, other and unspecified, shoulder and upper arm ADDITIONAL CLINICAL INFORMATION: Ordering Provider Reason For Exam: Technologist Note: Rt shoulder injury Additional: None COMPARISON: None available at the time of dictation. TECHNIQUE: Three views of the right shoulder are reviewed. FINDINGS: No acute fracture or dislocation is seen. There is a very prominent osteophyte arising from the undersurface ofthe acromion near the AC joint, likely to cause subacromial impingement. Mild superior subluxation of the humeral head is seen, sometimesassociated with rotator cuff pathology. The glenohumeral joint and AC joint spaces are narrowed with marginal osteophytes. Small degenerative cysts are seen in the humeral head. IMPRESSION No acute osseous abnormality. Degenerative changes including prominent osteophyte at the undersurface of the acromion. Reading Radiologist - Mana Byers Releasing Radiologist - Mana Byers Dictation Date Time - 11/01/2014 17:32 Coordinate Measuring Equipment Operator - NA Abimael Handley MD DIAGNOSTIC IMAGING [facility] Care Teams Loader Engineer Relationship Specialty Start Date End Date Elan Rothman PA-C [address] [place] [address] PCP - General 11/01/14
--- OUTSIDE RECORDS SUMMARY | 2024-08-11 15:34 | XMS_ITS | Clinical Summary ---
Author Organization [facility] Address [address] [place] [id number] Care Team Providers Care Psychology Professor Name Role Phone Unavailable Primary Care Provider Unavailabl e Social History Tobacco Use Types Packs/Day Years Used Date Smoking Tobacco: Never Assessed Sex and Gender Information Value Date Recorded Sex Assigned at Not on file Legal Sex Male 4:05 PM CDT Gender Identity Not on file Sexual Orientation Not on file Plan of Treatment Health Maintenance Due Date Last Done Comments Hepatitis C Virus (HCV) Screening 1966 TdaP Immunization 1966 Hepatitis B Immunization (1 of 3 - 19+ 3-dose series) 1985 Colonoscopy 2011 Colorectal Cancer Screening 2011 Cologuard 2016 Immunochemical Fecal Occult Blood 2016 Pneumococcal Immunization (5 0+ years) (1 of 1 - PCV) 2016 Zoster Immunization (1 of 2) 2016 PSA Discussion 2021 Influenza Immunization (#1) 2024 SARS-COV-2 Immunization ( - 2023- season) 2024 10/15/2020, 09/23/2020 Respiratory Syncytial Virus (RSV) Immunization (Adult) (1 - 1-dose 75+ series) 2041 Meningococcal Immunization (ACWY) Aged Out No longer eligible b ased on patient's age to complete this topic Pneumococcal Immunization Combined Aged Out No longer eligible b ased on patient's age to complete this topic Rotavirus Immunization Aged Out No lo nger eligible based on patient's age to complete this topic
--- OUTSIDE RECORDS SUMMARY | 2024-08-11 15:34 | XMS_ITS | Referral Summary ---
Author Organization [facility] Address [address] [place] [address] Care Team Providers Care Junior Graphic Designer Name Role Phone Elan Rothman PA-C Primary Care Provider [phone] Source Comments [facility],non-owned Affiliates and Associated Physician Practices is amultiple site organization consisting of ambulatory clinics and hospital sitesin [place], [place], [place] and [place]. This disclosure is being madepursuant to the Care Everywhere program and may not contain all information available regarding this patient. Last updated 18.[facility] Medications * Be aware that medications may [...] 11/01/2014 4:35 PM CDT Plan of Treatment Not on file Care Teams Junior Graphic Designer Relationship Specialty Start Date End Date Elan Rothman PA-C [address] [place], [place] [id number] PCP - General 11/01/14
--- OUTSIDE RECORDS SUMMARY | 2024-08-11 15:34 | XMS_ITS | Clinical Summary ---
Author Organization [facility] Address [address] [place] [phone] Phone Care Team Providers Care Research Executive Name Role Phone Ambrocio Guerra DO Primary Care Provider Allergies No known active allergies Medications Medication Sig Dispensed Refills Start Date End Date Status metFORMIN (GLUCOPHAGE) 500 MG tablet Take 1,000 mg by mouth in the morning and 1,000 mg before bedtime. 04/24/2022 Active levothyroxine (SYNTHROID) 150 MCG tablet 06/05/2022 Active glipiZIDE (GLUCOTROL) 10 MG tablet Take 10 mg by mouth in the morning and 10 mg before bedtime. 04/24/2022 Active Active Problems Problem Noted Date Diagnosed Date Morbid obesity 05/07/2019 Hyperlipidemia 07/08/2017 Overview (06/02/2022): Last Assessment & Plan: Chronic, stable Plan: - Ordered Lipid panel, calculate ASCVD risk Hypokalemia 07/08/2017 Overview (06/02/2022): Last Assessment & Plan: Acute - K 3.1 on admission 2/2 vomiting Plan: - Received KCl 20 mEq in ED - Repeat BMP Hypomagnesemia 07/08/2017 Overview (06/02/2022): Last Assessment & Plan: Acute - Mg 1.6 on admission 2/2 vomiting Plan: - Received Magnesium sulfate 2g IV in ED - Repeat Magnesium in AM Intractable nausea and vomiting 07/08/2017 Overview (06/02/2022): Last Assessment & Plan: Acute - S/p 15 episodes of NBNB emesis, possible food poisoning vs viral gastritis vs atypical presentation of NSTEMI with elevated Troponin on admission. Hx and lab findings inconsistent with pancreatitis/SBO Plan: - Received 3L fluid bolus in ED with clinical improvement - Continue NS at 150 ml/hr - NPO w/ sips/meds. ADAT in AM. - Zofran 4 mg IV q6h prn Serum lactate dehydrogenase level elevated 07/08 Overview (06/02/2022): Last Assessment & Plan: Acute - No convincing signs of infection w/o leukocytosis. No identifiable cutaneous or pulmonary source. No urinary symptoms. EtOH negative. - Possible elevation related to metformin use in setting of dehydration - Trended down 3.4 -> 2.7 with 3L fluid bolus Plan: - Repeat in AM Tobacco use and exposure - finding 07/08/2017 Type 2 diabetes mellitus 07/08/2017 Overview (06/02/2022): Last Assessment & Plan: Chronic, unknown control - Glucose on presentation 368, received 4 U Novolog in ED Plan: - Ordered HbA1c - Hold home metformin due to elevated lactate - POC glucose AC/HS - Continue Lantus 10 U qHS + MDSSI Mixed hyperlipidemia 03/16/2017 Essential hypertension 03/16/2017 Acquired hypothyroidism 03/16/2017 Diverticular disease 09/28/2016 Tubular adenoma of colon 08/30/2016 Overview (06/02/2022): Overview: f/u 5 yrs f/u 5 yrs Body mass index 40+ - severely obese 04/15/2014 Degeneration of lumbar intervertebral disc 04/15 Immunizations Name Administration Dates Next Due Influenza TIV (IM) 03/24/2014 Influenza, Injectable, Quadrivalent, Preservativ e Free 04/03/2017,04/20/2016 Influenza, Unspecified 04/03/2017 Pneumococcal Polysaccharide 04/15/2014 Tdap 04/15/2014 Social History Tobacco Use Types Packs/Day Years Used Date Smoking Tobacco: Former Cigarettes 1 15 1 2 - 2006 Smokeless Tobacco: Never Tobacco Cessation:Counseling Given: Not Answered Alcohol Use Standard Drinks/Week Comments Yes 0 (1 standard drink = 0.6 oz pur e alcohol) Sex and Gender Information Value Date Recorded Sex Assigned at Not on file Gender Identity Not on file Sexual Orientation Not on file Last Filed Vital Signs Vital Sign Reading Time Taken Comments Blood Pressure 138/84 06/07/2022 8:42 AM SPRINKLER FITTER APPRENTICE Pulse - - Temperature 36.1 C (97 F) 06/07/2022 8:42 AM SPRINKLER FITTER APPRENTICE Respiratory Rate 18 06/07/2022 8:42 AM SPRINKLER FITTER APPRENTICE Oxygen Saturation - - Inhaled Oxygen Concentration - - Weight 113 kg (250 lb) 06/07/2022 8:42 AM SPRINKLER FITTER APPRENTICE Height 172.7 cm (5' 8 ) 06/07/2022 8:42 AM SPRINKLER FITTER APPRENTICE Body Mass Index 38.01 06/07/2022 8:42 AM SPRINKLER FITTER APPRENTICE Plan of Treatment Health Maintenance Due Date Last Done Comments Pneumococcal PPSV23 Highest Risk Adult (2 of 3 - PCV13) 04/15/2015 04/15/2014 Influenza Vaccine (#1) 2024 7, 04/03/2017, 04/20/2016, Additional history exists Care Teams Research Executive Relationship Specialty Start Date End Date Ambrocio Guerra DO [address] [place] [address] PCP - General Internal Medicine 05/22/22
--- OUTSIDE RECORDS SUMMARY | 2024-08-11 15:34 | XMS_ITS | Clinical Summary ---
Author Organization [facility] King durham Quang Address [address] [place] [address] Care Team Providers Care Chocolate Packer Name Role Phone Ambrocio Guerra Primary Care Provider Allergies No known active allergies Medications Farxiga 10 mg Tablet 10 mg. 4 Active levothyroxine 150 mcg tablet take 1 tablet by mouth in the morning Active losartan (COZAAR) 25 mg tablet Take 1 Tablet by mouth daily. 4 Active metFORMIN (GLUCOPHAGE) 500 mg tablet Take 1,000 mg by mouth 2 times daily with meals. Active rosuvastatin (CRESTOR) 10 mg tablet Take 1 Tablet by mouth daily. 4 Active Ozempic 2 mg/dose (8 mg/3 mL) Pen Injector Inject 2 mg by subcutaneous injection every 7 days. 4 Active testosterone cypionate (DEPO-TESTOSTE ELVER) 200 mg/mL Oil INJECT 140MG (0.7ML) INTRAMUSCULARY WEEKLY 4 Active Active Problems No known active problems Encounters Date Type Department Care Team Description 07/29/2024 External Device Data STL ABSTRACTION Provider, Abstract 07/16/2024 External Device Data STL ABSTRACTION Provider, Abstract 07/15/2024 2:30 PM WAREHOUSE FREIGHT HANDLER Office Visit [facility] On[facility] and Hematology - [place] [address] [place] [address] Toby Martin MD Chronic anemia (Primary Dx) 07/08/2024 External Device Data STL ABSTRACTION Provider, Abstract 06/23/2024 Orders Only [facility] - [place] [address] [place] [address] Toby Martin MD 06/17/2024 External Device Data STL ABSTRACTION Provider, Abstract 06/16/2024 Orders Only [facility]ology - [place] [address] [place] [phone] Toby Martin MD 06/12/2024 Orders Only [facility]ology - [place] [address] [place] [address] Toby Martin MD 06/10/2024 1:30 PM WAREHOUSE FREIGHT HANDLER Office Visit [facility]ematology - [place] [address] [place] [phone] Toby Martin MD Chronic anemia (Primary Dx) from Last 3 Months Family History * Patient is adopted Medical History Relation Name Comments No Known Problems Father No Known Problems Mother Cancer Sister 2 Relation Name Status Comments Father Alive Mother Sister 1 Alive Sister 2 Alive Social History Tobacco Use Types Packs/Day Years Used Date Smoking Tobacco: Former Cigarettes 1 30 Q uit: 06/10/2014 Tobacco Cessation:Counseling Given: Not Answered Sex and Gender Information Value Date Recorded Sex Assigned at Not on file Legal Sex Male 11:15 PM CDT Gender Identity Not on file Sexual Orientation Not on file Last Filed Vital Signs Vital Sign Reading Time Taken Comments Blood Pressure 159/82 07/15/2024 2:21 PM WAREHOUSE FREIGHT HANDLER Pulse 65 07/15/2024 2:21 PM WAREHOUSE FREIGHT HANDLER Temperature 36.6 C (97.8 F) 07/15/2024 2:21 PM WAREHOUSE FREIGHT HANDLER Respiratory Rate 16 07/15/2024 2:21 PM WAREHOUSE FREIGHT HANDLER Oxygen Saturation 95% 07/15/2024 2:21 PM WAREHOUSE FREIGHT HANDLER Inhaled Oxygen Concentration - - Weight 93 kg (205 lb) 07/15/2024 2:21 PM WAREHOUSE FREIGHT HANDLER Height 172.7 cm (5' 8 ) 06/10/2024 1:34 PM WAREHOUSE FREIGHT HANDLER Body Mass Index 31.17 06/10/2024 1:34 PM WAREHOUSE FREIGHT HANDLER Plan of Treatment Upcoming Encounters Date Type Department Care Team (Late st Contact Info) Description 11/12/2024 2:45 PM CDT Office Visit [facility] H[facility]ology - [place] [address] [facility] [address] [place] [address] Toby Martin MD [address] [facility] [address] [place] [address] Health Maintenance Due Date Last Done Comments DIABETES ANNUAL FOOT EXAM 1984 DIABETES ANNUAL RETINAL EXAM 1984 DIABETES MICROALBUMIN ANNUAL SCREEN 1984 LDL CHOLESTEROL ANNUAL 1984 HEPATITIS B VACCINES (1 of 3 - 19+ 3-dose series) 1985 FIT-DNA Q 3 years 2011 FIT/FOBT Q 1 year 2011 Flex Sig/CT Colonography Q 5 years 2011 ZOSTER VACCINE (1 of 2) 2016 DIABETES HBA1C Q 6 MONTHS 07/09/2022 01/06/2022 INFLUENZA VACCINE (#1) 2024 7, 04/20/2016, 03/24/2014 DTAP/TDAP/TD VACCINES (2 - T d or Tdap) 04/15/2024 04/15/2014 COLORECTAL SCREENING 07/02/2026 07/02/2016 Colorectal Cancer Screening 07/02/2026 Procedures Procedure Name Priority Date/Time Associated Diagnosis Comments PROTEIN ELECTROPHORESIS, CSF Routine 06/23/2024 3:13 PM WAREHOUSE FREIGHT HANDLER COMPREHENSIVE METABOLIC PANEL Routine 06/10/2024 3:46 PM WAREHOUSE FREIGHT HANDLER CBC WITH DIFFERENTIAL Routine 06/10/2024 3:35 PM WAREHOUSE FREIGHT HANDLER TRANSFERRIN RECEPTOR TFR SOLUBLE Routine 06/10/2024 3:28 PM WAREHOUSE FREIGHT HANDLER TRANSFERRIN RECEPTOR TFR SOLUBLE Routine 06/10/2024 3:25 PM WAREHOUSE FREIGHT HANDLER TRANSFERRIN RECEPTOR TFR SOLUBLE Routine 06/10/2024 3:23 PM WAREHOUSE FREIGHT HANDLER TRANSFERRIN RECEPTOR TFR SOLUBLE Routine 06/10/2024 3:21 PM WAREHOUSE FREIGHT HANDLER TRANSFERRIN RECEPTOR TFR SOLUBLE Routine 06/10/2024 3:21 PM WAREHOUSE FREIGHT HANDLER TRANSFERRIN RECEPTOR TFR SOLUBLE Routine 06/10/2024 3:20 PM WAREHOUSE FREIGHT HANDLER TRANSFERRIN RECEPTOR TFR SOLUBLE Routine 06/10/2024 3:19 PM WAREHOUSE FREIGHT HANDLER IRON LEVEL Routine 06/10/2024 3:01 PM WAREHOUSE FREIGHT HANDLER TRANSFERRIN RECEPTOR TFR SOLUBLE Routine 06/10/2024 2:41 PM WAREHOUSE FREIGHT HANDLER TRANSFERRIN RECEPTOR TFR SOLUBLE Routine 06/10/2024 1:10 PM WAREHOUSE FREIGHT HANDLER from Last 3 Months Results * PROTEIN ELECTROPHORESIS, CSF (06/23/2024 3:13 PM WAREHOUSE FREIGHT HANDLER) Cerebrospinal fluid CEREBROSPINAL FLUID / Unknown us Toby Martin MD BODY FLUIDS AND STOOLS Final Re sult * COMPREHENSIVE METABOLIC PANEL (06/10/2024 3:46 PM WAREHOUSE FREIGHT HANDLER) Blood Result Ilda Martin MD CHEMISTRY ORDERABLES Final Resu lt * CBC WITH DIFFERENTIAL (06/10/2024 3:35 PM WAREHOUSE FREIGHT HANDLER) Blood Result Ilda Martin MD HEMATOLOGY ORDERABLES Final Res ult * TRANSFERRIN RECEPTOR TFR SOLUBLE (06/10/2024 3:28 PM WAREHOUSE FREIGHT HANDLER) Only the most recent of9 resultswithin the time period is included. Blood Result Ilda Martin MD CHEMISTRY ORDERABLES Final Resu lt * IRON LEVEL (06/10/2024 3:01 PM WAREHOUSE FREIGHT HANDLER) Blood Result Ilda Martin MD CHEMISTRY ORDERABLES Final Resu lt from Last 3 Months Insurance [facility] OPEN ACCESS HMO Care Teams Chocolate Packer Relationship Specialty Start Date End Date Ambrocio Guerra DO [address] [address] PCP - General Internal Medicine 06/10/24
[2024-08-11 16:32] LABS: Basophils Absolute Auto 0.1 K/mm3 (0.0-0.1); Basophils Percent Auto 1.1 % (0.2-1.2); Eosinophils Absolute Auto 0.5 K/mm3 (0-0.3); Eosinophils Percent Auto 4.3 % (0-4.4); Hematocrit 35.6 % (42.0-52.0); Hemoglobin 11.3 g/dL (14.0-18.0); Immature Granulocyte Absolute 0.02 K/mm3 (0.00-0.031); Immature Granulocyte Percent A 0.2 % (0-0.5); Lymphocytes Absolute Auto 2.45 K/mm3 (0.9-3.2); Lymphocytes Percent Auto 22.5 % (18.3-44.2); Mean Corpuscular HGB Conc 31.7 g/dl (32-36); Mean Corpuscular Volume 88.3 fl (80-100); Mean Platelet Volume 10.3 fl (7.4-10.4); Monocytes Absolute Auto 0.8 K/mm3 (0.1-0.6); Monocytes Percent Auto 6.9 % (2.6-8.5); Neutrophils Absolute Auto 7.1 K/mm3 (1.3-6.7); Platelet Count Result 250 k/mm3 (150-375); Red Blood Count 4.03 M/mm3 (4.6-6.20); Red Cell Distribution Width 12.7 % (11.5-14.5); White Blood Count 10.9 K/mm3 (4.5-10.0)
[2024-08-11 16:44] LABS: Albumin Level 4.3 g/dL (3.5-5.1); Anion Gap 11 mmol/L (4-12); Blood Urea Nitrogen 52 mg/dL (9-20); Calcium 9.2 mg/dL (8.4-10.2); Carbon Dioxide 26 mmol/L (22-30); Chloride 102 mmol/L (98-107); Estimated Glomerular Filt Rate 25; Glucose 81 mg/dL (65-110); Phosphorus 4.3 mg/dL (2.5-4.5); Potassium 4.9 mmol/L (3.4-5.0); Sodium 139 mmol/L (137-145)
[2024-08-11 17:00] LABS: Creatinine Urine 90.3 mg/dL; Total Protein Urine Random 157 mg/dL; Ur Ttl Prot Creatinine Ratio 1.74 mg/mg (0-0.20)
== END 2024-08-11 15:26 | disposition home or self-care (01) ==
LOC: ANHLAB 15:26
PROVIDERS: PCP Internal Medicine; Visit Provider Internal Medicine Nephrology
DX: E03.9 Hypothyroidism, unspecified (principal); D64.9 Anemia, unspecified; E11.22 Type 2 diabetes mellitus with diabetic chronic kidney disease; N18.4 Chronic kidney disease, stage 4 (severe)
CPT/HCPCS: 36415; 80069; 82570; 84156; 84443; 85025

== ENCOUNTER 2024-09-02 15:22 | Outpatient (CLI) | payer OTHER, SELFPAY ==
[2024-09-02 16:13] LABS: Creatinine Urine 78.4 mg/dL
[2024-09-02 16:43] LABS: MALB Creatinine Ratio 613.4 mg/g (0-30); Microalbumin Urine Random 480.9 mg/L (0-16.7)
[2024-09-02 17:26] LABS: Prostate Specific Antigen 0.9 ng/mL (< OR = 4.0)
[2024-09-02 17:29] LABS: Hemoglobin A1C 5.7 % (<5.7)
== END 2024-09-02 15:23 | disposition home or self-care (01) ==
LOC: ANHLAB 15:25
PROVIDERS: PCP Internal Medicine; Visit Provider Internal Medicine
DX: E11.22 Type 2 diabetes mellitus with diabetic chronic kidney disease (principal); N18.32 Chronic kidney disease, stage 3b; Z79.890 Hormone replacement therapy
CPT/HCPCS: 36415; 82043; 83036; 84153; 84402; 84403

== ENCOUNTER 2024-12-09 16:11 | Outpatient (CLI) | payer OTHER, SELFPAY ==
[2024-12-09 16:59] LABS: Creatinine Urine 92.4 mg/dL
--- OUTSIDE RECORDS SUMMARY | 2024-12-09 17:14 | XMS_ITS | Clinical Summary ---
Author Organization [facility] Address [address] [place] [address] Care Team Providers Care Ballistics Expert Name Role Phone Unavailable Primary Care Provider [...]
[2024-12-09 17:15] LABS: Albumin Level 4.6 g/dL (3.5-5.1); Anion Gap 14 mmol/L (4-12); Blood Urea Nitrogen 63 mg/dL (9-20); Calcium 9.4 mg/dL (8.4-10.2); Carbon Dioxide 20 mmol/L (22-30); Chloride 105 mmol/L (98-107); Estimated Glomerular Filt Rate 20; Glucose 92 mg/dL (65-110); Phosphorus 4.2 mg/dL (2.5-4.5); Potassium 4.3 mmol/L (3.4-5.0); Sodium 139 mmol/L (137-145)
[2024-12-09 17:18] LABS: Total Protein Urine Random 295 mg/dL; Ur Ttl Prot Creatinine Ratio 3.19 mg/mg (0-0.20)
[2024-12-09 17:23] LABS: Parathyroid Intact 108.7 pg/mL (14.5-75.2)
[2024-12-09 17:29] LABS: Vitamin D 25 Hydroxy 67.2 ng/mL
== END 2024-12-09 16:12 | disposition home or self-care (01) ==
LOC: ANHLAB 16:13
PROVIDERS: PCP Internal Medicine; Visit Provider Internal Medicine Nephrology
DX: E11.22 Type 2 diabetes mellitus with diabetic chronic kidney disease (principal); N18.4 Chronic kidney disease, stage 4 (severe); N25.81 Secondary hyperparathyroidism of renal origin; E55.9 Vitamin D deficiency, unspecified
CPT/HCPCS: 36415; 80069; 82306; 82570; 83970; 84156

== ENCOUNTER 2025-05-04 15:26 | Outpatient (CLI) | payer OTHER, SELFPAY ==
--- OUTSIDE RECORDS SUMMARY | 2025-05-04 15:44 | XMS_ITS | Clinical Summary ---
Author Organization [facility] Address [address] [address] Care Team Providers Care Wedding Florist Name Role Phone Elan Rothman PA-C Primary Care Provider [phone] Source Comments [facility],non-owned Affiliates and Associated Physician Practices is amultiple site organization consisting of ambulatory clinics and hospital sitesin [place], [place], [place] and [place]. This disclosure is being madepursuant to the Care Everywhere program and may not contain all information available regarding this patient. Last updated 18.[facility] Medications * Be aware that medications may not be up to date on this document. Alwaysverify current medications with the patient. Acetaminophen-As pirin Buffered (EXCEDRIN BACK & BODY PO) Take by mouth. 11/01/2014 Active Social History Tobacco Use Types Packs/Day Years Used Date Smoking Tobacco: Never Smokeless Tobacco: Never Alcohol Use Standard Drinks/Week Comments Yes 0 (1 standard drink = 0.6 oz pur e alcohol) Sex and Gender Information Value Date Recorded Sex Assigned at Not on file Legal Sex Male 4:21 AM CDT Gender Identity Not on file Sexual [...] 4:35 PM CDT Height 172.7 cm (5' 7.99) 11/01/2014 4:35 PM CD T Body Mass [...] 2016 ZOSTER VACCINE (1 of 2) 2016 DEPRESSION SCREENING 07/02/2024 COVID-19 VACCINE (1 - 2023-2 5 season) 2025 INFLUENZA VACCINE (#1) 2025 HIB VACCINE Aged Out No longer eligi ble based on patient's age to complete this topic HPV VACCINE Aged Out No longer eligi ble based on patient's age to complete this topic MENINGOCOCCAL (Group B) VACC INE SHARED DECISION-MAKING Aged Out No longer eligibl e based on patient's age to complete this topic MENINGOCOCCAL GROUPS A/C/Y/W VACCINE Aged Out No longer eligible b ased on patient's age to complete this topic Care Teams Wedding Florist Relationship Specialty Start Date End Date Elan Rothman PA-C [address] [place] [address] PCP - General 11/01/14
--- OUTSIDE RECORDS SUMMARY | 2025-05-04 15:44 | XMS_ITS | Clinical Summary ---
Author Organization [facility] Address [address] [place] [address] Phone Care Team Providers Care Auto Specialty Services Manager Name Role Phone Ambrocio Guerra DO Primary Care Provider [phone] Allergies No known active allergies Medications metFORMIN (GLUCOPHAGE) 500 MG tablet Take 1,000 [...] Degeneration of lumbar intervertebral disc 04/15 Immunizations Immunization Administration Dates Next Due Influenza TIV (IM) 03/24/2014 Influenza, Injectable, Quadrivalent, Preservativ e Free 04/03/2017,04/20/2016 Influenza, Unspecified 04/03/2017 Pneumococcal Polysaccharide 04/15/2014 Tdap 04/15/2014 Social History Tobacco Use Types Packs/Day Years Used Date Smoking Tobacco: Former Cigarettes 1 15 1 992 - 2006 Smokeless Tobacco: Never Tobacco Cessation:Counseling Given: Not Answered Alcohol Use Standard Drinks/Week Comments Yes 0 (1 standard drink = 0.6 oz pur e alcohol) Sex and Gender Information Value Date Recorded Sex Assigned at Not on file Legal Sex Male 8:09 AM MST Gender Identity Not on file Sexual Orientation Not on file Last Filed Vital Signs Vital Sign Reading Time Taken Comments Blood Pressure 138/84 06/07/2022 8:42 AM CERTIFIED WELDING INSPECTOR Pulse - - Temperature 36.1 C (97 F) 06/07/2022 8:42 AM CERTIFIED WELDING INSPECTOR Respiratory Rate 18 06/07/2022 8:42 AM CERTIFIED WELDING INSPECTOR Oxygen Saturation - - Inhaled Oxygen Concentration - - Weight 113 kg (250 lb) 06/07/2022 8:42 AM CERTIFIED WELDING INSPECTOR Height 172.7 cm (5' 8) 06/07/2022 8:42 AM CERTIFIED WELDING INSPECTOR Body Mass Index 38.01 06/07/2022 8:42 AM CERTIFIED WELDING INSPECTOR Plan of Treatment Health Maintenance Due Date Last Done Comments Influenza Vaccine (#1) 2025 7, 04/03/2017, 04/20/2016, Additional history exists Insurance [employer] Care Teams Auto Specialty Services Manager Relationship Specialty Start Date End Date Ambrocio Guerra DO [address] [place] [id number] PCP - General Internal Medicine 05/22/22
--- OUTSIDE RECORDS SUMMARY | 2025-05-04 15:44 | XMS_ITS | Clinical Summary ---
[facility] Address [address] [place] [address] Care Team Providers Care Journeyman Electrician Pv Installer Name Role Phone SarahyjimyAmbrocio nielson Primary Care Provider Allergies No known active [...] Encounters Date Type Department Care Team Description 04/29/2025 External Device Data STL ABSTRACTION Provider, Abstract 04/28/2025 External Device Data STL ABSTRACTION Provider, Abstract from Last 3 Months Family History * [...] Comments Blood Pressure 159/82 07/15/2024 2:21 PM RECEIVING ASSOCIATE Pulse 65 07/15/2024 2:21 PM RECEIVING ASSOCIATE Temperature 36.6 C (97.8 F) 07/15/2024 2:21 PM RECEIVING ASSOCIATE Respiratory Rate 16 07/15/2024 2:21 PM RECEIVING ASSOCIATE Oxygen Saturation 95% 07/15/2024 2:21 PM RECEIVING ASSOCIATE Inhaled Oxygen Concentration - - Weight 93 kg (205 lb) 07/15/2024 2:21 PM RECEIVING ASSOCIATE Height 172.7 cm (5' 8) 06/10/2024 1:34 PM RECEIVING ASSOCIATE Body Mass Index 31.17 06/10/2024 1:34 PM RECEIVING ASSOCIATE Plan of Treatment Health Maintenance Due Date Last Done Comments DIABETES ANNUAL FOOT EXAM 1984 DIABETES ANNUAL RETINAL EXAM 1984 DIABETES MICROALBUMIN ANNUAL SCREEN 1984 LDL CHOLESTEROL ANNUAL 1984 HEPATITIS B VACCINES (1 of 3 - 19+ 3-dose series) 1985 FIT-DNA Q 3 years 2011 FIT/FOBT Q 1 year 2011 Flex Sig/CT Colonography Q 5 years 2011 Lung Cancer Screening 2016 ZOSTER VACCINE (1 of 2) 2016 DIABETES HBA1C Q 6 MONTHS 07/09/2022 01/06/2022 DTAP/TDAP/TD VACCINES (2 - T d or Tdap) 04/15/2024 04/15/2014 INFLUENZA VACCINE (#1) 2025 7, 04/20/2016, 03/24/2014 COLORECTAL SCREENING 07/02/2026 07/02/2016 Colorectal Cancer Screening 07/02/2026 Insurance [facility] OPEN ACCESS HMO Care Teams Journeyman Electrician Pv Installer Relationship Specialty Start Date End Date Ambrocio Guerra DO [address] [facility] [address] [place] [address] PCP - General Internal Medicine 06/10/24
--- OUTSIDE RECORDS SUMMARY | 2025-05-04 15:45 | XMS_ITS | Patient Health Record ---
Author Organization [facility] Address [address] [facility] [address] [place] [address] Care Team Providers Care Dike Supervisor Name Role Phone aJvan Lynch MD Primary Care Provider Unavailab enriqeu Tomas Hernández Unavailable [phone] Reason For Referral No Information Medications Medication SIG (Take, Route, Frequency, Duration) Notes Start Date End Date Status Synthroid 200 MCG AND 50 MCG 250 MCG 6 DAYS A WEEK AND 200MCG ON SUNDAYS ORALLY ONCE A DAY; Duration: 90 DAYS *Please review and pick correct strength-formulatio n from [employer] options. If intended option is not shown, discontinue and re-order from Quick Search* Active Niacin 500 MG 1 TAB orally TWICE A DAY Active ONE TOUCH ULTRA TEST STRIPS FSBS FSBS PRN; Duration: 25 *Please review for potential replacement for e-prescription and drug interaction check* 02/23/2011 Active Levothyroxine Sodium 50 TAKE ONE TABLET BY MOUTH EVERY DAY; Duration: 30 *Please review and pick correct strength-formulatio n from [employer] options. If intended option is not shown, discontinue and re-order from Quick Search* Active Vitamin B Complex VITAMIN B COMPLEX ONCE A DAY *Please review and pick correct strength-formulatio n from [employer] options. 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 [address] [place] [address] [id number] NAHUM ROSALES Self - patient is the insured Medical (General) History Surgical History Surgery Date(Month/Year) cheek bone
--- OUTSIDE RECORDS SUMMARY | 2025-05-04 15:45 | XMS_ITS | Clinical Summary ---
Author Organization [facility] Address [address] [place] [address] Care Team Providers Care Sales Service Manager Name Role Phone Unavailable Primary Care Provider [...] of 3 - 19+ 3-dose series) 1985 Cologuard 2011 Colonoscopy 2011 Colorectal Cancer Screening 2011 Immunochemical Fecal Occult Blood 2011 Pneumococcal Immunization (5 0+ years) (1 of 1 - PCV) 2016 Zoster Immunization (1 of 2) 2016 Influenza Immunization (#1) 2025 SARS-COV-2 Immunization (3 - 2024- season) 2025 10/15/2020, 09/23/2020 Respiratory Syncytial Virus (RSV) Immunization (Adult) (1 - 1-dose 75+ series) 2041 Human Papillomavirus (HPV) Immunization Aged Out No longer eligible b ased on patient's age to complete this topic Meningococcal Immunization (ACWY) Aged Out No longer eligible b ased on patient's age to complete this topic Rotavirus Immunization Aged Out No lo nger eligible based on patient's age to complete this topic
[2025-05-04 16:17] LABS: Albumin Level 4.3 g/dL (3.5-5.1); Anion Gap 9 mmol/L (4-12); Blood Urea Nitrogen 48 mg/dL (9-20); Calcium 8.6 mg/dL (8.4-10.2); Carbon Dioxide 24 mmol/L (22-30); Chloride 105 mmol/L (98-107); Estimated Glomerular Filt Rate 21; Glucose 105 mg/dL (65-110); Potassium 4.3 mmol/L (3.4-5.0); Sodium 138 mmol/L (137-145)
[2025-05-04 16:45] LABS: Total Protein Urine Random 421 mg/dL; Ur Ttl Prot Creatinine Ratio 4.04 mg/mg (0-0.20)
== END 2025-05-04 15:27 | disposition home or self-care (01) ==
LOC: ANHLAB 15:27
PROVIDERS: PCP Internal Medicine; Visit Provider Internal Medicine Nephrology
DX: N18.4 Chronic kidney disease, stage 4 (severe) (principal); E11.22 Type 2 diabetes mellitus with diabetic chronic kidney disease
CPT/HCPCS: 36415; 80069; 82570; 84156

== ENCOUNTER 2025-05-14 11:40 | Outpatient (CLI) | payer OTHER, SELFPAY ==
[2025-05-14 12:22] LABS: Hematocrit 34.8 % (42.0-52.0); Hemoglobin 11.1 g/dL (14.0-18.0); Immature Granulocyte Percent A 0.4 % (0-0.5); Lymphocytes Absolute Auto 1.86 K/mm3 (0.9-3.2); Mean Corpuscular HGB Conc 31.9 g/dl (32-36); Mean Corpuscular Hemoglobin 29.1 pg (26-34); Mean Corpuscular Volume 91.1 fl (80-100); Nucleated Red Blood Cells Absolute Auto 0.000 K/mm3 (0.0-0.012); Nucleated Red Blood Cells Perc 0.0 % (0.0-0.2); Platelet Count Result 229 k/mm3 (150-375); Red Blood Count 3.82 M/mm3 (4.6-6.20); White Blood Count 11.2 K/mm3 (4.5-10.0)
[2025-05-14 12:42] LABS: Cholesterol 103 mg/dL (0-200); HDL Direct 42 mg/dL; Triglycerides 108 mg/dL (<150)
--- OUTSIDE RECORDS SUMMARY | 2025-05-14 12:42 | XMS_ITS | Clinical Summary ---
Author Organization [facility] Address [address] [place] [phone] Care Team Providers Care Top Lift Cutter Name Role Phone Unavailable Primary Care Provider [...]
--- OUTSIDE RECORDS SUMMARY | 2025-05-14 12:42 | XMS_ITS | Patient Health Record ---
Author Organization [facility] Address [address] [facility] [address] [place] [address] Care Team Providers Care Shark Biologist Name Role Phone Javan Lynch MD Primary Care Provider Unavailab Tomas Doss Unavailable [phone] Reason For Referral No Information Medications Medication SIG (Take, Route, Frequency, Duration) Notes Start Date End Date Status Synthroid 200 MCG AND 50 MCG 250 MCG 6 DAYS A WEEK AND 200MCG ON SUNDAYS ORALLY ONCE A DAY; Duration: 90 DAYS *Please review and pick correct strength-formulatio n from [employer] options. If intended option is not shown, [...] review and pick correct strength-formulatio n from [employer] options. If intended option is not shown, discontinue and re-order from Quick Search* Active Vitamin B Complex VITAMIN B COMPLEX ONCE A DAY *Please review and pick correct strength-formulatio n from [employer] options. If intended option is not shown, discontinue and re-order from Quick Search* Active GLUCOPHAGE XR 500 MG 4 TAB(S) ORALLY ONCE A DAY; Duration: 90 DAYS *Please review for potential replacement for e-prescription and drug interaction check* Active Problems Problem Type SNOMED Code ICD Code Onset Dates Problem Status W/U Status Risk Notes Problem Diabetic polyneuropathy (48289024) Polyneuropathy in diabetes (357.2) Active confirmed Problem Morbid obesity (165714090) Morbid obesity (278.01) Active confirmed Problem Neurologic disorder associated with type II diabetes mellitus (666538839) DMII NEURO UNCNTRLD (250.62) Active confirmed Problem Body mass index 40+ - morbidly obese (108386353) BMI 40.0-44.9, adult (V85.41) Active confirmed Plan Of Treatment Pending Test Test Name Order Date 05/23/2011 Insurance Providers Payer Name Payer Address Payer Phone Subscriber Number Group Number Insured Name Patient Relationship to Insured Coverage Start Date Coverage End Date [facility] [address] [place] [address] [id number] NAHUM ROSALES Self - patient is the insured Medical (General) History Surgical History Surgery Date(Month/Year) cheek bone
--- OUTSIDE RECORDS SUMMARY | 2025-05-14 12:42 | XMS_ITS | Clinical Summary ---
Author Organization [facility] Address [address] [place] [address] Care Team Providers Care First Line Supervisor Name Role Phone Ambrocio Guerra Primary Care [...] Encounters Date Type Department Care Team Description 05/05/2025 External Device Data STL ABSTRACTION Provider, Abstract 04/29/2025 External Device Data [facility] ABSTRACTION Provider, [...] Comments Blood Pressure 159/82 07/15/2024 2:21 PM MANAGER ELECTRONIC Pulse 65 07/15/2024 2:21 PM MANAGER ELECTRONIC Temperature 36.6 C (97.8 F) 07/15/2024 2:21 PM MANAGER ELECTRONIC Respiratory Rate 16 07/15/2024 2:21 PM MANAGER ELECTRONIC Oxygen Saturation 95% 07/15/2024 2:21 PM MANAGER ELECTRONIC Inhaled Oxygen Concentration - - Weight 93 kg (205 lb) 07/15/2024 2:21 PM MANAGER ELECTRONIC Height 172.7 cm (5' 8) 06/10/2024 1:34 PM MANAGER ELECTRONIC Body Mass Index 31.17 06/10/2024 1:34 PM MANAGER ELECTRONIC Plan of Treatment Health Maintenance Due Date [...] 07/02/2026 07/02/2016 Colorectal Cancer Screening 07/02/2026 Insurance [facility] Care Teams First Line Supervisor Relationship Specialty Start Date End Date Ambrocio Guerra DO [address] [place] [id number] PCP - General Internal Medicine 06/10/24
--- OUTSIDE RECORDS SUMMARY | 2025-05-14 12:42 | XMS_ITS | Clinical Summary ---
Author Organization [facility] Address [address] [place] [phone] Phone Care Team Providers Care Vulcan Crewmember Name Role Phone Ambrocio Guerra DO Primary Care Provider [phone] Allergies No known active allergies Medications metFORMIN [...] Comments Blood Pressure 138/84 06/07/2022 8:42 AM OIL WELL DRILLER Pulse - - Temperature 36.1 C (97 F) 06/07/2022 8:42 AM OIL WELL DRILLER Respiratory Rate 18 06/07/2022 8:42 AM OIL WELL DRILLER Oxygen Saturation - - Inhaled Oxygen Concentration - - Weight 113 kg (250 lb) 06/07/2022 8:42 AM OIL WELL DRILLER Height 172.7 cm (5' 8) 06/07/2022 8:42 AM OIL WELL DRILLER Body Mass Index 38.01 06/07/2022 8:42 AM OIL WELL DRILLER Plan of Treatment Health Maintenance Due Date Last Done Comments Influenza Vaccine (#1) 2025 7, 04/03/2017, 04/20/2016, Additional history exists Insurance [employer] Care Teams Vulcan Crewmember Relationship Specialty Start Date End Date Ambrocio Guerra DO [address] [place] [id number] PCP - General Internal Medicine 05/22/22
--- OUTSIDE RECORDS SUMMARY | 2025-05-14 12:42 | XMS_ITS | Clinical Summary ---
Author Organization [facility] Address [address] [place] [address] Care Team Providers Care Work Order Sorting Clerk Name Role Phone EileenNarendra gill DO Primary Care Provider Allergies No known active allergies Medications Blood Glucose Monitoring Suppl (ONE TOUCH ULTRA 2) w/Device Kit 02/09/2016 Act abbie Glucose Blood test strip daily. 04/03/2017 Active Active Problems Problem Noted Date Diagnosed Date Morbid obesity 05/07/2019 Other specified hypothyroidism 05/07/2019 Intractable nausea and vomiting 07/08/2017 Assessment & Plan (07/08/2017 2:37 AM COUNTY CORONER): Acute - S/p 15 episodes of NBNB [...] 4 mg IV q6h prn Diabetes mellitus 07/08/2017 Assessment & Plan (07/08/2017 2:39 AM COUNTY CORONER): Chronic, unknown control - Glucose on presentation 368, received 4 U Novolog in ED Plan: - Ordered HbA1c - Hold home metformin due to elevated lactate - POC glucose AC/HS - Continue Lantus 10 U qHS + MDSSI Hypertension 07/08/2017 Assessment & Plan (07/08/2017 2:40 AM COUNTY CORONER): Chronic, hypertensive on presentation Plan: - Continue home lisinopril 40 mg daily - Continue to monitor Elevated serum lactate dehydrogenase 07/08/2017 Assessment & Plan (07/08/2017 2:45 AM COUNTY CORONER): Acute - No convincing signs of infection w/o leukocytosis. No identifiable cutaneous or pulmonary source. No urinary symptoms. EtOH negative. - Possible elevation related to metformin use in setting of dehydration - Trended down 3.4 -> 2.7 with 3L fluid bolus Plan: - Repeat in AM Hypokalemia 07/08/2017 Assessment & Plan (07/08/2017 11:28 AM COUNTY CORONER): Acute - K 3.1 on admission 2 vomiting Plan: - Received KCl 20 mEq in ED - Repeat BMP Hypomagnesemia 07/08/2017 Assessment & Plan (07/08/2017 2:51 AM COUNTY CORONER): Acute - Mg 1.6 on admission 2 vomiting Plan: - Received Magnesium sulfate 2g IV in ED - Repeat Magnesium in AM Hyperlipidemia 07/08/2017 Assessment & Plan (07/08/2017 2:53 AM COUNTY CORONER): Chronic, stable Plan: - Ordered Lipid panel, [...] to 38.9 in adult 07/08/2017 07/06/2020 Immunizations Immunization Administration Dates Next Due Influenza Adult (Generic) [...] 8:15 AM CDT Height 170.2 cm (5' 7) 01/06/2022 8:15 AM CDT Body Mass Index 39 01/06/2022 8:15 AM CDT Plan of Treatment Health Maintenance Due Date Last Done Comments Kidney Health Evaluation 1966 Diabetes: Retinopathy Eye Exam 1984 Hepatitis C 1984 Hepatitis B Vaccines (1 of 3 - 19+ 3-dose series) 1985 Pneumococcal Vaccine: 50+ Years (2 of 2 - PCV) 04/15/2015 04/15/2014 Zoster Vaccines (1 of 2) 2016 Hemoglobin A1C 07/09/2022 01/06/2022, 0 10/2020, 05/10/2019, Additional history exists Annual Physical 01/06/2023 01/06/2022, 0 10/2020, 05/07/2019 Lipid Panel 01/06/2023 01/06/2022, 01/2022, 07/06/2020, Additional history exists DTaP, Tdap and Td Vaccines (2 - Td or Tdap) 04/15/2024 04/15/2014 COVID-19 Vaccine ( - season) 2025 10/15/2020, 09/23/2020 Influenza Adult (#1) 2025 04/03/2017, 04/20/20 16 Colorectal Cancer Screening Colonoscopy (10 Years) 07/02/2026 07/02/2016 Hepatitis A Vaccines Aged Out No long er eligible based on patient's age to complete this topic Meningococcal B Vaccine Aged Out No l [...] edema, without long-term current use of insulin Mixed hyperlipidemia HEMOGLOBIN, GLYCOSYLATED Routine 01/06/2022 8:33 AM CDT 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, without long-term current use of insulin COLONOSCOPY Routine 07/02/2016 12:00 AM COUNTY CORONER from Last 3 Months or Most Recently Relevant to Health Maintenance Results * (ABNORMAL) LIPID PANEL (01/06/2022 8:36 AM CDT) CHOLESTEROL 178 0 - 199 MG/DL [facility] TRIGLYCERIDES 336(H) 0.00 - 150.00 MG/DL [facility] Comment: NCEP REFERENCE VALUES FOR TRIGLYCERIDES: NORMAL: <150 MG/DL BORDERLINE HIGH: 150 - 199 MG/DL HIGH: 200 - 499 MG/DL VERY HIGH: >/= 500 MG/DL HDL 34(L) >40 MG/DL [facility] LDL (CALCULATED) 77 0 - 99 MG/DL [facility] Comment: CUTOFF VALUES RECOMMENDED BY THE NATIONAL CHOLESTEROL EDUCATION PROGRAM: DESIRABLE: CHOLESTEROL <200 MG/DL LDL <100 MG/DL BORDERLINE: CHOLESTEROL 200-239 MG/DL LDL 101-159 MG/DL HIGHER RISK: CHOLESTEROL >240 MG/DL LDL >160 MG/DL, HDL <40 MG/DL NON HDL CHOLESTEROL 144 NO REFERENCE RANGE MG/DL [facility] Comment: A REASONABLE GOAL FOR NON-HDL CHOLESTEROL IS ONE THAT IS 30 MG/DL HIGHER THAN THE LDL CHOLESTEROL GOAL. CHOL/HDL RATIO 5.2(H) 0.0 - 5.0 . [facility] Comment:IS PATIENT FASTING?- >YES 01/06/2022 8:36 AM CDT 01/07/2022 4:28 AM CDT Narendra Jo Front Flip DO LABORATORY Final Resul t Performing Organization Address [facility] Co de Phone Number [facility] [address] [place] [address], * (ABNORMAL) HEMOGLOBIN, GLYCOSYLATED (01/06/2022 8:33 AM CDT) HGB A1C 6.8(A) 4.2 - 6.5 % [facility] 01/06/2022 8:33 AM CDT Narendra Jo Front Flip DO LABORATORY Final Resul t Performing Organization Address [facility] de Phone Number [facility] [address] [phone], * Colonoscopy (07/02/2016 12:00 AM COUNTY CORONER) 07/02/2016 07/02/2016 Narrative TOUCHWORKS TO EPIC CONVERSION - 07/02/2016 12:00 AM COUNTY CORONER Documented hx of procedure Procedure Note Mal Gama MD - 09/19/2018 Documented hx of procedure Generic Steven Gama MD GI PROCEDURE ORDERABLES Final Result Performing Organization Address [facility] Co de Phone Number TOUCHWORKS TO EPIC CONVERSION from Last 3 Months or Most Recently Relevant to Health Maintenance Insurance [employer] [facility] Advance Directives * Full Code (Latest Code Status on File) Date Activated Date Inactivated Comments 07/08/2017 2:26 AM 07/08/2017 7:28 PM Care Teams Work Order Sorting Clerk Relationship Specialty Start Date End Date Narendra Arellano DO PCP - General FAMILY PRACTICE 10/25/18
--- OUTSIDE RECORDS SUMMARY | 2025-05-14 12:42 | XMS_ITS | Clinical Summary ---
Author Organization [facility] Address [address] [place] [address] Care Team Providers Care Crystal Report Developer Name Role Phone Elan Rothman PA-C Primary Care Provider [phone] Source Comments [facility],non-owned Affiliates and Associated Physician Practices is amultiple site organization consisting of ambulatory clinics and hospital sitesin [place], [place], [place] and [place]. This disclosure is being madepursuant to the Care Everywhere program and may not contain all information available regarding this patient. Last updated 18.[facility] Medications * Be aware that medications may [...] age to complete this topic Care Teams Crystal Report Developer Relationship Specialty Start Date End Date Elan Rothman PA-C [address] [place] [address] PCP - General 11/01/14
[2025-05-14 12:44] LABS: Hemoglobin A1C 6.0 % (<5.7)
[2025-05-14 13:17] LABS: Ferritin 45.70 ng/mL (11.1-264)
[2025-05-14 13:18] LABS: Prostate Specific Antigen 1.2 ng/mL (< OR = 4.0)
[2025-05-14 13:27] LABS: Thyroid Stimulating Hormone > 100.000 uIU/mL (0.465-4.680)
[2025-05-16 16:08] LABS: Free Testosterone (Direct) 31.0 pg/mL (7.2-24.0)
== END 2025-05-14 11:41 | disposition home or self-care (01) ==
LOC: ANHLAB 11:41
PROVIDERS: PCP Internal Medicine; Visit Provider Internal Medicine
DX: I12.9 Hypertensive chronic kidney disease with stage 1 through stage 4 chronic kidney disease, or unspecified chronic kidney disease (principal); E11.22 Type 2 diabetes mellitus with diabetic chronic kidney disease; N18.32 Chronic kidney disease, stage 3b; E03.9 Hypothyroidism, unspecified; Z79.890 Hormone replacement therapy; D63.1 Anemia in chronic kidney disease; E29.1 Testicular hypofunction
CPT/HCPCS: 36415; 80061; 82043; 82728; 83036; 84153; 84402; 84403; 84443; 85025